=== PATIENT | female | born 1960 | race Caucasian/White ===

== ENCOUNTER 2016-10-03 09:16 | Day surgery (SDC) | payer OTHER ==
--- NOTE | 2016-09-30 10:13 | PREOPHP ---
DATE OF ADMISSION: 10/03/[address] Tinoco: Thank you very much for allowing me to participate in the care of Ms. Cabrera. HISTORY OF PRESENT ILLNESS: She is a 56-year-old [place] born woman who is being brought in electively by yourself for operative arthroscopy with debridement and open reduction internal fixati on for a fracture and dislocation of the left ankle. She reports she had been walking and found an uneven surface and did damage to the ankle, which will now require surgical repair. PAST MEDICAL HISTORY: 1. Hypothyroidism. 2. Usual childhood diseases. 3. History of varicella. 4. Fibromyalgia. 5. History of colitis. 6. History of clindamycin induced Clostridium difficile colitis. 7. Status post T and A. 8. Status post laparotomy with appendectomy in 1985. 9. Status post ovarian cystectomy in 1981, 1982 and 2 in 1983. 10. Status post right oophorectomy in 1984. 11. Status post RADHA with BSO in 2006 with a simultaneous abdominal colpopexy, posterior colporrhaph y and sling. 12. Status post right inguinal hernia with mesh. 13. Status post septoplasty. ALLERGIES: SHE IS ALLERGIC TO: 1. PENICILLIN. 2. CEPHALOSPORINS. 3. SULFA. 4. FLAGYL. 5. BENZODIAZEPINES. 6. DOXYCYCLINE. 7. SHE HAS BEEN INTOLERANT OF MORPHINE AND DILAUDID. MEDICATIONS: 1. Calcium carbonate 3 times a day. 2. Levothyroxine 75 mcg a day. 3. Liothyronine 5 mg once a day. 4. Duloxetine 60 mg a day. 5. Ambien 5 mg at bedtime p.r.n. 6. Multiple vitamins. 7. Vitamin C 1 gram a day. HABITS: She is a nonsmoker, no alcohol, no recreational drugs, no caffeine. SOCIAL HISTORY: She was born in [facility] and then raised in [facility]. She has live d in the [place] for 30 years. 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 FAMILY HISTORY: Negative for coronary artery disease, positive for diabetes, positive for hypertens ion, negative for strokes, positive for asthma, negative for glaucoma, negative for migraine, positi ve for colon cancer, positive for breast cancer and positive for osteoporosis and negative for anest hesia reactions. REVIEW OF SYSTEMS: HEAD AND EYES: Fully negative. ENT: Negative. RESPIRATORY: Negative. CARDIAC: Negative, and before her injury she could climb 3 flights of stairs. GASTROINTESTINAL: Negative. She reports a negative colonoscopy in 2012 and she reports she has neg ative hepatitis serologies. HEMATOLOGIC: Negative. UROLOGIC: Negative. GYNECOLOGIC: Negative. She is G2, P2, AB 0. PSYCHIATRIC: Negative. MUSCULOSKELETAL: Negative except for the left lower extremity injury. ENDOCRINE: Negative. NEUROLOGIC: Negative. GENERAL: Unremarkable. PHYSICAL EXAMINATION: GENERAL: At the time of physical exam, she is in a wheelchair. VITAL SIGNS: She has a temperature of 97.6, pulse 80, blood pressure 134/60, respirations 18, pulse oximetry is 99%. HEENT: NC/AT; PERRL, EOMI, anicteric, fundi are without note; tympanic membranes are without note; oropharynx demonstrates no lesions. NECK: Supple. There is a midline trachea. There are no palpable thyromegaly. RESPIRATORY: Clear to auscultation and percussion. CARDIAC: Demonstrates no JVD, a regular rate and rhythm without rubs, murmurs or gallops. ABDOMEN: Soft, nontender, active bowel sounds, no hepatosplenomegaly, no CVA tenderness, no hernias , no bruits. EXTREMITIES: Demonstrate no clubbing, cyanosis, or edema. Please note that the left leg is in a fu ll brace from the knee down NEUROLOGIC: Nonfocal. LABORATORY DATA: Chest x-ray demonstrates adequate technique, normal bones and soft tissue, normal c ardiac size and silhouette. Normal lungs. Sodium 142, potassium 3.9, chloride 101, bicarbonate 28, BUN 19, creatinine 0.7, glucose 96. Liver chemistries without note. White count 4.5, hemoglobin 1 3.1, hematocrit 40.7, platelet count 279. Pro time 11.3 with an INR of 0.95, PTT is 23 seconds. Ur inalysis 1.015, pH is 5, dipsticks are negative. EKG demonstrates sinus rhythm at 78 with intervals of 0.14, 0.08, 0.40 and axis of 30 degrees and normal morphology. ASSESSMENT AND PLAN: Preoperative medical consultation prior to elective extensive left ankle surge ry. At this time, I find Ms. Cabrera to be an acceptable surgical candidate and concur with your plans to proceed with surgery. She is at average surgical risk as compared to her age-matched peers and using the modified goals of this criteria, she is at average risk. She should do well using all sta ndard and routine anesthesia precautions. Respectfully yours, Dictated By: RAYNA VILLARREAL MD JR/NTS Conf#: [id number] DID#: [id number] CC: SHAI TINOCO MD;*EndCC*
[~2016-10-03] VITALS: Ht 162.6 cm; Wt 82.0 kg
[2016-10-03] VITALS (15 sets, daily range): BP systolic 110–131; BP diastolic 70–91; PULSE 74–92; RESP 11–19; Ht 162.6 cm; Wt 82.0 kg
[2016-10-03] MEDS ORDERED: MIDAZOLAM 1 MG/ML 2 ML INJ ONE (10:34)
[2016-10-03] MEDS ORDERED: FENTAnyl 50 MCG/ML VIAL ONE ×2 (10:34→13:48)
[2016-10-03] MEDS ORDERED: BUPIVACAINE 0.25%/EPI (SDV) 30 ML INJ ONE (10:35)
[2016-10-03] MEDS ORDERED: ROPIVACAINE 0.5 % 30 ML VIAL ONE ×2 (10:35→13:59)
[2016-10-03] MEDS ORDERED: SOD CHLORIDE 0.9% 1,000 ML IV SCH (11:09)
--- NOTE | 2016-10-03 11:09 | HPN ---
Date/Time of Note Date/Time of Note DATE: 10/03/16 TIME: 11:09 Interval H&P Admission Note Pt. seen H&P reviewed: No system changes SHAI TINOCO MD Oct 03, 2016 11:09
[2016-10-03] MEDS ORDERED: ONDANSETRON 4 MG INJ IV PRN ×2 (11:30→13:00)
[2016-10-03] MEDS ORDERED: OXYCODONE/ACETAMINOPHEN (5/325) TAB PO PRN ×2 (11:30)
[2016-10-03] MEDS ORDERED: PROPOFOL 0 ML ONE (11:31)
[2016-10-03] MEDS ORDERED: LIDOCAINE 2% (SDV) 5 ML INJ ONE ×2 (11:31→13:41)
[2016-10-03] MEDS ORDERED: VANCOMYCIN 1 GM (PMX) 250 ML ONE (11:36)
[2016-10-03] MEDS ORDERED: FENTAnyl 50 MCG/ML VIAL IV PRN (13:00)
[2016-10-03] MEDS ORDERED: MEPERIDINE 25 MG INJ IV PRN (13:00)
[2016-10-03] MEDS ORDERED: NALOXONE (0.4 MG/ML) INJ IV PRN (13:00)
[2016-10-03] MEDS ORDERED: ROCURONIUM 50 MG INJ ONE (13:41)
[2016-10-03] MEDS ORDERED: PROPOFOL 20 ML ONE (13:41)
[2016-10-03] MEDS ORDERED: ONDANSETRON 4 MG INJ ONE (13:42)
[2016-10-03] MEDS ORDERED: KETOROLAC 30 MG INJ ONE ×2 (13:43→14:42)
[2016-10-03] MEDS ORDERED: POLYMYXIN/BACITRACIN 1L IRRIG ONE (13:59)
[2016-10-03] MEDS ORDERED: hydrALAzine 20 MG INJ ONE (14:03)
[2016-10-03] MEDS ORDERED: NEOMYC/POLYMYX/BACIT 30 GM OINT ONE (14:22)
[2016-10-03] MEDS ORDERED: METOPROLOL 5 MG INJ ONE (14:46)
--- NOTE | 2016-10-03 18:10 | OPR ---
DATE OF OPERATION: 10/03/2016 ADDENDUM PUBLIC HEALTH DIETITIAN ORTHOPEDIC SURGEON: During the procedure, an assignment desk assistant orthopedic surgeon was used at my request. The assignment desk assistant helped with distracting and manipulating the ankle, holding the arthroscope and most importantly inserting the screws while I held the fracture reduced. Without a skilled orth opedic surgeon being present to do this, this could not have been performed; therefore, should be co mpensated appropriately. Dictated By: SHAI CHACON/KIRAN Conf#: [id number] DID#: [id number]
--- NOTE | 2016-10-03 18:37 | OPR ---
DATE OF OPERATION: 10/03/2016 PREOPERATIVE DIAGNOSES: 1. Unstable Whiteside C fracture, dislocation, left ankle. 2. Rule out tear of the deltoid and syndesmosis. POSTOPERATIVE DIAGNOSES: 1. Unstable fracture dislocation Whiteside C of the left fibula and posterior malleolus. 2. Tear of the deltoid and syndesmosis. 3. Hematoma, fibrosis and scarring. OPERATION PERFORMED: 1. Arthroscopy left ankle with soft distraction. 2. Extensive debridement of the ankle. 3. Open reduction internal fixation, left fibula fracture with an 8-hole Arthrex plate. 4. Insertion of a TightRope across the syndesmosis to stabilize the torn syndesmosis. 5. Use of fluoroscopy to verify reduction of the ankle in position of the plate and screws and Tigh tRope. 6. Short-leg splint. SURGEON: Shai Pastor MD CDL BULK DRIVER: VIDYA TINAJERO MD. ANESTHESIA: General with a popliteal block. TOURNIQUET TIME: 73 minutes. DESCRIPTION OF PROCEDURE: The patient taken to the operating room and placed in supine position. S atisfactory popliteal block was given. Satisfactory general anesthesia was administered. The left thigh secured in the thigh griffin. Arms were carefully padded. Left leg was prepped and draped in the usual manner. One gram of vancomycin given intravenously. Gentle distraction was applied acros s the ankle. Standard anteromedial, anterolateral, and posterolateral portals were used, using extr cortes caution to avoid injury to the neurovascular structures. There was a lot of hematoma throughout the ankle. There was fibrosis and scarring throughout the ankle. The shaver was inserted. The me dial gutter was debrided. There was a tear of the deep deltoid ligament. There was a tear of the s yndesmosis. Lateral gutter was intact. Anterior talofibular ligament appeared to be intact. There was no significant osteochondral injuries anteriorly, centrally or posteriorly. There was a fractu re of the posterior malleolus relatively undisplaced. Shaver was inserted. After debriding the med ial and lateral gutters, The posterior gutter was debrided. All scar tissue adhesions and fibrosis was removed. The ankle was then irrigated clear. The leg was then repositioned, reprepped and draped. All new gowns and gloves were used and all new instruments were used. Tourniquet inflated to 250 mmHg. Incision made over the fibula 4 or 5 cm. Dissection carried down to subcutaneous tissue. Periosteum was elevated over the fracture. The ob lique fracture was shortened and externally rotated. Hematoma was removed. The whole fracture area was irrigated clear of debris. A clamp was used to reduce the fracture. An interfragmentary 3.5 s crew was then inserted. Excellent reduction was obtained. An 8-hole Arthrex plate was then contour ed laterally. We wanted to put 3 screws above the fracture and interfragmentary compression screw a nd 3 below. We felt we probably would have to put TightRope to stabilize the syndesmosis. The scre ws were placed through the plate above and below. Excellent fixation was obtained. The AP and late ral fluoroscope picture showed good reduction of the fracture in all planes. The syndesmosis was st ressed and there was some widening of the syndesmosis and deltoid. We felt we should stabilize the syndesmosis with TightRope. TightRope was then inserted aiming 3 to 4 degrees anteriorly with the foot in neutral dorsiflexion and stabilized the syndesmosis nicely. It was stable under stress x-ra ys. The wound was irrigated repeatedly with antibiotic solution. Final fluoroscopic view showed go od position and alignment in AP, lateral and mortise planes of the plate and screws and TightRope. The ankle was well reduced. The fascia was closed with a running 0 PDS. Subcutaneous tissue was closed with 3-0 undyed Vicryl a nd skin with 4-0 black nylon. Saphenous nerve block was done 0.5% ropivacaine. Compression dressin g was applied as well as short leg splint in neutral position. At the end of procedure, sponge and needle count was correct. Patient tolerated procedure well. Dictated By: SHAI CHACON/KIRAN Conf#: [id number] DID#: [id number]
[2016-10-03] MEDS ORDERED: METOCLOPRAMIDE 10 MG INJ IV ONE (19:00)
--- NOTE | 2016-10-04 12:30 | RADRPT ---
PROCEDURE: X-ray fluoroscopy guidance CLINICAL INDICATION: LT ANKLE ORIF TECHNIQUE: Fluoroscopic guidance was utilized for intraoperative procedure. COMPARISON: None. FINDINGS: Fluoroscopic guidance was utilized for intraoperative procedure. 0.8 minutes of fluoroscopy time wa s utilized for the procedure. 4 x-ray images were obtained during the procedure. There has been open reduction and internal fixation of a distal fibular fracture with a plate and sc rews in near anatomic alignment. IMPRESSION: X-ray fluoroscopic guidance utilized for intraoperative procedure. Status post ORIF of a distal fibular fracture with a plate and screws in near anatomic alignment. Please see procedure note details. RPTAT: EE Physician Nisa Date Time Electronically viewed and signed by Physician Nisa on 10/04/2016 12:29 /
== END 2016-10-03 19:24 | disposition home or self-care (01) ==
LOC: SDS 09:16
PROVIDERS: ATTEND Orthopaedic Surgery
DX: S82.62XA Displaced fracture of lateral malleolus of left fibula, initial encounter for closed fracture (principal); S93.422A Sprain of deltoid ligament of left ankle, initial encounter; S93.432A Sprain of tibiofibular ligament of left ankle, initial encounter; M24.672 Ankylosis, left ankle; E03.9 Hypothyroidism, unspecified; Z88.0 Allergy status to penicillin; Z88.2 Allergy status to sulfonamides; Z88.8 Allergy status to other drugs, medicaments and biological substances; W19.XXXA Unspecified fall, initial encounter; Y93.01 Activity, walking, marching and hiking; Y92.9 Unspecified place or not applicable; Y99.9 Unspecified external cause status
CPT/HCPCS: 11010; 27792; 27829; 29897; 73610; C1713; J0360; J1885; J2175; J2250; J2405; J2765; J2795; J3010; J3370

== ENCOUNTER 2017-05-22 05:46 | Day surgery (SDC) | payer OTHER ==
[~2017-05-22] VITALS: Ht 162.6 cm; Wt 80.0 kg
[2017-05-22] VITALS (13 sets, daily range): BP systolic 106–149; BP diastolic 61–90; PULSE 66–74; RESP 14–24; Ht 162.6 cm; Wt 80.0 kg
[2017-05-22] MEDS ORDERED: FENTAnyl 50 MCG/ML VIAL ONE ×2 (06:24→11:19)
[2017-05-22] MEDS ORDERED: DEXAMETHASONE 4 MG/ML 1 ML INJ ONE (06:26)
[2017-05-22] MEDS ORDERED: ONDANSETRON 4 MG INJ ONE (06:27)
[2017-05-22] MEDS ORDERED: ROPIVACAINE 0.5 % 30 ML VIAL ONE ×2 (06:30→09:50)
[2017-05-22] MEDS ORDERED: ONDANSETRON 4 MG INJ IV PRN ×2 (06:30→07:30)
[2017-05-22] MEDS ORDERED: EPHEDrine SULFATE 50 MG/5 ML SYG IV PRN (06:30)
[2017-05-22] MEDS ORDERED: ATROPINE 1 MG/10 ML SYRINGE IV PRN (06:30)
[2017-05-22] MEDS ORDERED: FENTAnyl 50 MCG/ML VIAL IV PRN ×5 (06:30→11:30)
[2017-05-22] MEDS ORDERED: hydrALAzine 20 MG INJ IV PRN (06:30)
[2017-05-22] MEDS ORDERED: LABETALOL HCL 20MG INJ IV PRN (06:30)
[2017-05-22] MEDS ORDERED: LIDOCAINE 100 MG SYRINGE ONE ×2 (06:31→07:19)
[2017-05-22] MEDS ORDERED: MIDAZOLAM 1 MG/ML 2 ML INJ ONE (06:57)
[2017-05-22] MEDS ORDERED: VANCOMYCIN 1 GM (PMX) 250 ML ONE (06:57)
[2017-05-22] MEDS ORDERED: GLYCOPYRROLATE 1 MG INJ ONE (07:00)
[2017-05-22] MEDS ORDERED: VANCOMYCIN 1 GM in SOD CHLORIDE 0.9% 250 ML IVPB ONE (07:00)
[2017-05-22] MEDS ORDERED: NEOSTIGMINE 3 MG/3 ML SYRINGE ONE (07:00)
[2017-05-22] MEDS ORDERED: VANCOMYCIN 1 GM in NS 250 ML IVPB SCH (07:05)
--- NOTE | 2017-05-22 07:15 | HPN ---
Date/Time of Note Date/Time of Note DATE: 05/22/17 TIME: 07:15 Interval H&P Admission Note Pt. seen H&P reviewed: No system changes SHAI TINOCO MD May 22, 2017 07:15
[2017-05-22] MEDS ORDERED: SUCCINYLCHOLINE CHLORIDE 100 MG/5 ML SYG IV ONE (07:18)
[2017-05-22] MEDS ORDERED: ROCURONIUM 50 MG INJ ONE (07:18)
[2017-05-22] MEDS ORDERED: PROPOFOL 100 ML ONE (07:18)
[2017-05-22] MEDS ORDERED: SOD CHLORIDE 0.9% 1,000 ML IV SCH (07:24)
[2017-05-22] MEDS ORDERED: morphine 10 MG INJ IV PRN (07:30)
[2017-05-22] MEDS ORDERED: OXYCODONE/ACETAMINOPHEN (5/325) TAB PO PRN ×2 (07:30)
[2017-05-22] MEDS ORDERED: POLYMYXIN/BACITRACIN 1L IRRIG IRR ONE (09:13)
[2017-05-22] MEDS ORDERED: LABETALOL HCL 20MG INJ ONE (09:42)
[2017-05-22] MEDS ORDERED: POVIDONE IODINE 10% 28.4 GM OINT ONE (09:50)
[2017-05-22] MEDS ORDERED: POLYMYXIN/BACITRACIN 1L IRRIG ONE (09:50)
--- NOTE | 2017-05-22 10:44 | OPPN ---
Date/Time of Note Date/Time of Note DATE: 05/22/17 TIME: 10:41 Operative Report Preoperative Diagnosis Painful hardware L ankle Postoperative Diagnosis 1. Painful deep hardware L ankle 2. Anterior ankle scarring 3. Type I/II chondromalacia L ankle Operation/Procedure Performed L ankle arthroscopy, Extensive debridement, Removal of deep painful hardware L ankle Surgeon see signature line casting assistant Catrina Anesthesia: general Estimated blood loss: 0 - 10 ml's Transfusion Required none Specimen Deep hardware L ankle Grafts/Implants none Complications none SHAI TINOCO MD May 22, 2017 10:44
--- NOTE | 2017-05-22 13:08 | OPR ---
DATE OF OPERATION: 05/22/2017 PREOPERATIVE DIAGNOSES: 1. Status post fracture, dislocation with a tear of the syndesmosis, left ankle. 2. Painful hardware. POSTOPERATIVE DIAGNOSES: 1. Status post fracture dislocation, left ankle with a tear of the syndesmosis. 2. Painful hardware along the lateral fibula. 3. Painful Endobutton from the TightRope configuration. 4. Adhesions of scar tissue, left ankle. 5. Chondral loose body greater than 1 cm. OPERATION PERFORMED: 1. Arthroscopy left ankle with soft distraction. 2. Extensive debridement of the ankle. 3. Removal of chondral loose body. 4. Open removal of plate and 6 screws from the fibula. 5. Open removal of the Endobutton from the TightRope along the medial distal tibia. 6. Use of fluoroscopy to identify the location of the screws and endobutton and removal. 7. Short-leg splint. SURGEON: Shai Pastor MD ENGINEERING ILLUSTRATOR: Pako Fritz. ANESTHESIA: General with popliteal block. TOURNIQUET TIME: 108 minutes. DESCRIPTION OF PROCEDURE: The patient taken to the operating room and placed in supine position. S atisfactory popliteal block was given. Satisfactory general anesthesia was administered, 1 gram of vancomycin given intravenously. Left thigh secured in the thigh griffin was carefully padded. The l eft leg was prepped and draped in the usual manner. Superficial peroneal nerve was marked out. Sta talard anteromedial, anterolateral, and posterolateral portals were used, using extreme caution to av oid injuring neurovascular structures. Extensive amount of scarring from the medial malleolus all t he lateral malleolus and distal tibia and anterior capsule. A shaver was used to remove the scar se quentially using the 30 and 70 degree arthroscope was removed all the scar that we could from the la teral gutter and medial gutter and syndesmosis and distal tibia and anterior gutter. The ankle was still very tight. The articular surfaces had some minimal chondromalacia anteriorly, relatively smo oth centrally and posteriorly. Synovitis was removed with suction basket along the lateral ankle an d along the syndesmosis. After complete debridement, the loose body was removed with a grasper. Fu rther debridement was done, the ankle moved much more freely. The ankle was irrigated clear wounds were closed with 4-0 black nylon. Ankle was then reprepped and draped. All new sterile instruments were used. New gown and gloves we re used. The ankle was repositioned. The fluoroscope was brought in and we marked where the Endobutton was and where the lateral plate an d screws were over the previous incisions, we made an incision on the distal tibia medially. Dissec tion down to subcutaneous tissue and we retracted the anterior tibial tendon identified the Endobutt on. Cut the suture into the button to remove the ends of the suture all the way down into the hole. Incision was then made along the fibula and dissection carried down to subcutaneous tissue. The p late and screws were identified. The plate and screws were removed. The TightRope was pulled out. With all the sutures for the lag screw was removed all holes were curetted and debrided. Wounds we re irrigated repeatedly with antibiotic solution. We identified throughout the procedure, the locat ion of the screws and then we verified that all the screws and hardware had been removed and AP and lateral directions under fluoroscopy. The lateral wounds were closed with a running 2-0 PDS. Tourn iquet was released, bleeders were coagulated, wounds irrigated again with antibiotic solution. Subc utaneous tissue closed of both wounds with 3-0 undyed Vicryl and skin with 4-0 black nylon. Sapheno us nerve block done with 0.5% ropivacaine. Compression dressing was applied and a push splint in ne utral position. At the end of procedure, sponge and needle count was correct. Patient tolerated pr ocedure well. SENIOR COMMERCIAL LOAN OFFICER ORTHOPEDIC SURGEON: During the procedure, an claims assistant orthopedic surgeon was used at my request. The claims assistant helped with distracting the ankle and with maneuvering the ankle. In additi on, the claims assistant helped with removing the screws while I retracted. Without a skilled claims assistant th is could not have been done; therefore, should be compensated appropriately. Dictated By: SHAI CHACON/KIRAN Conf#: [id number] DID#: [id number]
--- NOTE | 2017-05-22 13:12 | RADRPT ---
PROCEDURE: X-ray fluoroscopy guidance CLINICAL INDICATION: Left ankle hardware removal TECHNIQUE: Fluoroscopic guidance was utilized for an intraoperative procedure. Fluoro time: 0.8 minutes Number of images/sequences: 3 COMPARISON: None available FINDINGS: Multiple fluoroscopic images were provided for this elevation of the left ankle hardware removal. IMPRESSION: 1. X-ray fluoroscopic guidance utilized for intraoperative procedure. 2. Please see intraoperative for full details. RPTAT: AAPP Physician Grecia Date Time Electronically viewed and signed by Physician Grecia on 05/22/2017 13:11 JL/
== END 2017-05-22 13:00 | disposition home or self-care (01) ==
LOC: SDS 05:46
PROVIDERS: ATTEND Orthopaedic Surgery
DX: T84.84XD Pain due to internal orthopedic prosthetic devices, implants and grafts, subsequent encounter (principal); Y83.8 Other surgical procedures as the cause of abnormal reaction of the patient, or of later complication, without mention of misadventure at the time of the procedure; M24.072 Loose body in left ankle; E11.9 Type 2 diabetes mellitus without complications; E03.9 Hypothyroidism, unspecified; E66.9 Obesity, unspecified; Z68.30 Body mass index [BMI] 30.0-30.9, adult
CPT/HCPCS: 20680; 29891; 73610; J1100; J2001; J2250; J2405; J2710; J2795; J3010; J3370; J7050